=== PATIENT | female | born 1960 ===

== ENCOUNTER 2022-06-11 06:00 | Day surgery (SDC) | payer OTHER ==
[~2022-06-11 06:00] MED LIST: CHILDREN'S ASPI81 MG PO; LIPITOR40 MG PO; TOPROL XL25 M1 PO
[2022-06-11] MEDS ORDERED: TRAM1TAB98 PO (10:19)
[2022-06-11] MEDS ORDERED: MACROBID 100 M100 MG PO (10:19)
== END 2022-06-11 12:52 | disposition home or self-care (01) ==
LOC: CIR.AMB 06:00
PROVIDERS: ATTEND Obstetrics & Gynecology Gynecology
DX: N39.3 Stress incontinence (female) (male) (principal); Z20.822 Contact with and (suspected) exposure to COVID-19; I10 Essential (primary) hypertension; E78.00 Pure hypercholesterolemia, unspecified
CPT/HCPCS: 57288; C1771